=== PATIENT | male | born 1985 | race Caucasian/White ===

== ENCOUNTER → 2023-05-15 | Outpatient (CLI) | payer OTHER, SELFPAY ==
--- NOTE | 2023-05-15 16:55 | RAD_ITS ---
INDICATION: injury EXAMINATION/TECHNIQUE: X-RAY - RIGHT XR Wrist 2 Views COMPARISON: None. FINDINGS: No acute fracture or malalignment. No blastic or lytic lesions. No degenerative changes are seen. The soft tissues are unremarkable. RAD/Wrist 2 Views IMPRESSION: No acute radiographic abnormalities. Electronically Signed: Amilcar Thomas MD at 18:02 EST ,
--- NOTE | 2023-05-15 16:55 | RAD_ITS ---
INDICATION: injury EXAMINATION/TECHNIQUE: X-RAY - RIGHT XR Shoulder Min 2 Views 4 VIEWS COMPARISON: No relevant prior comparison study available FINDINGS: SOFT TISSUES: No soft tissue swelling or gas. No radiopaque foreign body. BONES/JOINTS: No acute fracture or subluxation.. Normal alignment. Preservation of the joint space.. No sclerotic or destructive changes observed. RAD/Shoulder min 2 Views IMPRESSION: No acute abnormalities. Electronically Signed: Amilcar Thomas MD at 18:02 EST ,
--- NOTE | 2023-05-15 16:55 | RAD_ITS ---
INDICATION: injury EXAMINATION/TECHNIQUE: X-RAY - RIGHT XR Elbow 2 Views COMPARISON: No relevant prior comparison study available FINDINGS: SOFT TISSUES: No soft tissue swelling or gas. No radiopaque foreign body. BONES/JOINTS: There is no displacement of the anterior or posterior fat pads. No acute fracture or subluxation. Normal alignment. Preservation of the joint space. No sclerotic or destructive changes observed. RAD/Elbow 2 Views IMPRESSION: No acute abnormalities. Electronically Signed: Amilcar Thomas MD at 18:03 EST ,
== END | disposition home or self-care (01) ==
LOC: MTRAD 16:55
PROVIDERS: Referring Provider Physician Assistant; Visit Provider Physician Assistant
DX: S49.91XA Unspecified injury of right shoulder and upper arm, initial encounter (principal); T14.90XA Injury, unspecified, initial encounter
CPT/HCPCS: 73030; 73070; 73100